=== PATIENT | male | born 1955 | race Caucasian/White ===

== ENCOUNTER 2021-02-11 05:25 | Day surgery (SDC) | payer MEDICARE ==
[2021-02-04 14:55] LABS: BASOPHILS % (AUTO) 0.6 % (0-1); EOSINOPHILS # (AUTO) 0.1 X10'3 (0-0.9); EOSINOPHILS % (AUTO) 1.8 % (0-6); LYMPHOCYTES # (AUTO) 1.3 X10'3 (1.1-4.8); LYMPHOCYTES % (AUTO) 19.9 % (21-51); MEAN CORPUSCULAR HEMOGLOBIN 31.6 PG (27.0-31.0); MEAN CORPUSCULAR HGB CONC 33.5 g/dL (33.0-36.5); MEAN CORPUSCULAR VOLUME 94.5 FL (78-98); MEAN PLATELET VOLUME 11.9 FL (7.4-10.4); MONOCYTES # (AUTO) 0.5 X10'3 (0-0.9); MONOCYTES % (AUTO) 7.7 % (2-12); NEUTROPHILS # (AUTO) 4.6 X10'3 (1.8-7.7); PRE OP HEMATOCRIT 45.6 % (42.0-52.0); PRE OP HEMOGLOBIN 15.3 g/dL (14.0-17.9); RED BLOOD COUNT 4.82 X10'6 (4.70-6.10); RED CELL DISTRIBUTION WIDTH 14.5 % (11.5-14.5)
[2021-02-04 15:08] LABS: ALBUMIN 3.5 G/DL (3.4-5.0); ALBUMIN/GLOBULIN RATIO 0.9 (1.1-1.5); ALKALINE PHOSPHATASE 87 IU/L (46-116); BLOOD UREA NITROGEN 10 MG/DL (7-18); BUN/CREATININE RATIO 9.8 (5.4-32.0); CALCIUM 8.4 MG/DL (8.5-10.1); CHLORIDE 105 MMOL/L (99-107); CREATININE 1.02 MG/DL (0.60-1.10); PRE OP ALT 51 U/L (30-65); PRE OP ANION GAP 10 (8-16); PRE OP AST 49 U/L (10-37); PRE OP BILIRUB, TOTAL 0.6 MG/DL (0.0-1.0); PRE OP GLUCOSE 113 MG/DL (70-104); PRE OP POTASSIUM 4.4 MMOL/L (3.4-5.1); PRE OP SODIUM 140 MMOL/L (135-145); TOTAL CARBON DIOXIDE 25.1 MMOL/L (24-32); TOTAL PROTEIN 7.3 G/DL (6.4-8.2); eGFR 73 ML/MIN
[2021-02-04 15:12] LABS: LARGE PLATELETS FEW; PLATELET ESTIMATE DECREASED
[2021-02-05 10:12] LABS: PRE OP PLATELET COUNT 28 X10'3 (140-440)
[2021-02-11] VITALS (8 sets, daily range): BP systolic 124–135; BP diastolic 65–80
[~2021-02-11] VITALS: Ht 177.8 cm; Wt 127.2 kg
[~2021-02-11 05:25] MED LIST: ADV50250 INH; ALBU8.5H17 INH; ESCI20TA39 PO; METF-950 PO; OLME-11 PO; ringers solution, lacted 1,000 ML IV SCH
[2021-02-11] MEDS ORDERED: ceFAZolin 1GM/D5W- ADD-VANTAGE 50 ML IV ONE (05:30)
[2021-02-11] MEDS ORDERED: ceFAZolin inj. 3,000 MG in normal saline 100ml IV soln 100 ML IV ONE (05:30)
[2021-02-11] MEDS ORDERED: albuterol 2.5 MG/3 ML nebule NEB ONE (05:30)
[2021-02-11] MEDS ORDERED: cefazolin/dext.iso 2gm/100ml 100 ML IV ONE (05:30)
[2021-02-11] MEDS ORDERED: famotidine 20mg tablet PO ONE (05:30)
[2021-02-11] MEDS ORDERED: albuterol 2.5 MG/3 ML nebule NEB PRN (05:30)
[2021-02-11] MEDS ORDERED: BUPIVAcaine/PF 2.5mg/ml (0.25%) 10ml vial ONE ×2 (07:13→08:42)
[2021-02-11] MEDS ORDERED: ringers solution, lacted 1,000 ML IV SCH (07:40)
[2021-02-11] MEDS ORDERED: hydrALAZINE 20mg/ml inj. IV PRN (07:40)
[2021-02-11] MEDS ORDERED: morphine 4 MG/ML inj SYRINge IV PRN (07:40)
[2021-02-11] MEDS ORDERED: ondansetron/PF 4mg/2ml inj IV PRN (07:40)
[2021-02-11] MEDS ORDERED: labetalol 20mg/4ml (5mg/ml) syringe IV PRN (07:40)
[2021-02-11] MEDS ORDERED: acetaminophen 1,000mg/100ml IV 100 ML IV PRN (07:40)
[2021-02-11] MEDS ORDERED: meperidine/PF 25mg/ml syringe IV PRN (07:40)
[2021-02-11] MEDS ORDERED: HYDROmorphone/PF 0.2 MG/ML SYRINGE IV PRN ×2 (07:40)
[2021-02-11] MEDS ORDERED: proCHLORperazine 10 MG/2 ml inj IV PRN (07:40)
[2021-02-11] MEDS ORDERED: morphine 2 MG/ML inj. syringe IV PRN (07:40)
[2021-02-11] MEDS ORDERED: fentaNYL/PF 50MCG/1 ML 2ML syringe ONE (07:47)
[2021-02-11] MEDS ORDERED: MIDAZolam 1 MG/ML 5ML VIAL ONE (07:50)
[2021-02-11] MEDS ORDERED: propofol inj 20 ML IV ONE ×2 (08:00)
[2021-02-11] MEDS ORDERED: LIDOcaine 2% (20mg/ml) 5ml vial ONE (08:00)
[2021-02-11 08:12] LABS: PRE OP INR 1.1 INR
--- NOTE | 2021-02-11 08:39 | NUR ---
Received from OR via [facility], accompanied by Anesthesiologist DR MARIE and report given by Anesthesiologist. PT AWAKE, DENIES PAIN. LEFT HAND W/THUMB AND FINGERS COVERED W/COLETTE WRAP FROM END OF THUMB/FINGERS TO BELOW ELBOW. THUMB/FINGERS PWD, PULMONOLOGIST 1-[address] AND COVERED W/GAUZE AND COLETTE WRAP. Addendum: 02/11/21 at 0901 by Hilda Alvarado RN Amended: Links added.
--- NOTE | 2021-02-11 09:29 | NUR ---
PT UP AND ABLE TO AMBULATE SAFELY, D/C INSTRUCTIONS ALONG W/PRESCRIPTION GIVEN AND GONE OVER W/PT WHO VERBALIZED UNDERSTANDING. PT D/CD TO HOME VIA W/C TO PRIVATE VEHICLE W/O INCIDENT. Addendum: 02/11/21 at 0953 by Hilda Alvarado RN Amended: Links added.
== END 2021-02-11 09:29 | disposition home or self-care (01) ==
LOC: PAS 05:25
PROVIDERS: ATTEND Orthopaedic Surgery Hand Surgery
DX: M18.12 Unilateral primary osteoarthritis of first carpometacarpal joint, left hand (principal); E11.9 Type 2 diabetes mellitus without complications; J45.909 Unspecified asthma, uncomplicated; I10 Essential (primary) hypertension; F41.9 Anxiety disorder, unspecified; Z98.890 Other specified postprocedural states; Z72.89 Other problems related to lifestyle; Z20.822 Contact with and (suspected) exposure to COVID-19; Z79.01 Long term (current) use of anticoagulants; Z79.899 Other long term (current) drug therapy; Z96.651 Presence of right artificial knee joint; Z98.84 Bariatric surgery status; Z87.442 Personal history of urinary calculi
CPT/HCPCS: 25310; 25447; 36415; 80053; 82948; 85025; 85610; 85730; 93005; J2001; J2250; J2704; J3010; J3490; J7120; U0003; U0005; Z7506; Z7512; 85008; A4215; A4618; A7000; J0690

== ENCOUNTER 2024-05-24 08:09 | Inpatient (IN) | payer MEDICARE ==
[2024-05-24] VITALS (20 sets, daily range): BP systolic 106–158; BP diastolic 39–67; PULSE 53–83; RESP 13–20; TEMP 98.7; O2SAT 82–100
[~2024-05-24] VITALS: Ht 182.9 cm; Wt 128.2 kg
[~2024-05-24 08:09] MED LIST changes: +METF-1203 PO; -METF-950 PO; -OLME-11 PO; +OLME-12 PO; -ringers solution, lacted 1,000 ML IV SCH
[2024-05-24 08:29] LABS: BILIRUBIN,URINE NEGATIVE (Neg); CLARITY,URINE CLEAR (Clear); COLOR,URINE YELLOW (Yellow); GLUCOSE, URINE NEGATIVE (Neg); KETONES,URINE TRACE mg/dl (Neg); LEUKOCYTE ESTERASE ,URINE NEGATIVE (Neg); NITRITES, URINE NEGATIVE (Neg); OCCULT BLOOD,URINE NEGATIVE (Neg); PH,URINE 6.5 (4.8-8.0); PROTEIN,URINE NEGATIVE (Neg); UROBILINOGEN,URINE 0.2 E.U/dL (0.2-1.0)
[2024-05-24 08:37] LABS: UA COLLECTION TYPE CLN CATCH MIDSTREAM
[2024-05-24 10:06] LABS: BASOPHILS % (AUTO) 0.2 % (0-1); EOSINOPHILS # (AUTO) 0.1 X10'3 (0-0.9); EOSINOPHILS % (AUTO) 0.9 % (0-6); HEMATOCRIT 43.1 % (42.0-52.0); HEMOGLOBIN 14.2 g/dl (14.0-17.9); LYMPHOCYTES # (AUTO) 1.3 X10'3 (1.1-4.8); LYMPHOCYTES % (AUTO) 9.1 % (21-51); MEAN CORPUSCULAR HEMOGLOBIN 26.9 PG (27.0-31.0); MEAN CORPUSCULAR HGB CONC 32.9 g/dL (33.0-36.5); MEAN CORPUSCULAR VOLUME 81.8 FL (78-98); MONOCYTES # (AUTO) 0.6 X10'3 (0-0.9); MONOCYTES % (AUTO) 4.5 % (2-12); NEUTROPHILS # (AUTO) 11.9 X10'3 (1.8-7.7); NEUTROPHILS % (AUTO) 85.3 % (42-75); PLATELET COUNT 92 X10'3 (140-440); RED BLOOD COUNT 5.26 X10'6 (4.70-6.10); RED CELL DISTRIBUTION WIDTH 15.4 % (11.5-14.5)
[2024-05-24 10:17] LABS: ALANINE AMINOTRANSFERASE 20 U/L (12-78); ALBUMIN 3.9 G/DL (3.4-5.0); ALKALINE PHOSPHATASE 118 IU/L (46-116); ANION GAP 13 (8-16); ASPARTATE AMINO TRANSFERASE 18 U/L (10-37); BILIRUBIN,TOTAL 0.8 MG/DL (0.1-1.0); BLOOD UREA NITROGEN 9 MG/DL (7-18); BUN/CREATININE RATIO 9.1 (10.0-20.0); CALCIUM 9.2 MG/DL (8.5-10.1); CHLORIDE 105 MMOL/L (99-107); CREATININE 0.99 MG/DL (0.60-1.10); GLUCOSE 117 MG/DL (70-104); LIPASE 26 U/L (16-77); POTASSIUM 3.9 MMOL/L (3.5-5.1); SODIUM 141 MMOL/L (135-145); TOTAL CARBON DIOXIDE 22.6 MMOL/L (24-32); TOTAL PROTEIN 7.8 G/DL (6.4-8.2); eCRCL 75 ML/MIN; eGFR 75 ML/MIN
[2024-05-24] MEDS: ketorolac trometh 15mg/ml vial 15 MG/ML ML IV ONE (10:39)
[2024-05-24] MEDS: INDOCYANINE GREEN 25 MG/10 ML VIAL IV STA (14:20)
[2024-05-24] MEDS: morphine 4 MG/ML inj SYRINge IV ONE (14:25)
[2024-05-24] MEDS ORDERED: morphine 2 MG/ML inj. syringe IV PRN ×3 (14:35→15:50)
[2024-05-24] MEDS ORDERED: labetalol 20mg/4ml (5mg/ml) syringe IV PRN (14:35)
[2024-05-24] MEDS ORDERED: enalaprilat dihydrate 2.5mg/2ml vial IV PRN (14:35)
[2024-05-24] MEDS ORDERED: meperidine/PF 25mg/ml syringe IV PRN ×3 (14:35)
[2024-05-24] MEDS ORDERED: ondansetron/PF 4mg/2ml inj IV PRN ×2 (14:35→15:50)
[2024-05-24] MEDS ORDERED: proCHLORperazine 10 MG/2 ml inj IV PRN (14:35)
[2024-05-24] MEDS ORDERED: ringers solution, lacted 1,000 ML IV SCH (14:35)
[2024-05-24] MEDS ORDERED: BUPIVAcaine 2.5mg/ml inj 50ml vial (contains preservative) ONE (14:40)
[2024-05-24] MEDS ORDERED: LIDOcaine 1% (10mg/ml)w/preservative inj. 20ml MDV ONE (14:40)
[2024-05-24] MEDS ORDERED: sevoflurane 250ml liquid IH ONE (15:12)
[2024-05-24] MEDS ORDERED: midazolam 1 mg/ML 2ml injection ONE (15:22)
[2024-05-24] MEDS ORDERED: fentaNYL/PF 50MCG/1 ML 2ML syringe ONE (15:22)
[2024-05-24] MEDS ORDERED: meperidine/PF 25mg/ml syringe ONE (15:24)
[2024-05-24] MEDS ORDERED: propofol inj 20 ML IV ONE (15:25)
[2024-05-24] MEDS ORDERED: rocuronium 10mg/ml inj IV ONE (15:25)
[2024-05-24] MEDS ORDERED: LIDOcaine 1%/PF 5ML 10 MG/ML VIAL ONE (15:25)
[2024-05-24] MEDS ORDERED: ceFAZolin 1000mg inj ONE ×3 (15:43)
[2024-05-24] MEDS ORDERED: HYDROcodone/acetaminophen 5mg/325mg tablet PO PRN (15:50)
[2024-05-24] MEDS ORDERED: potassium Cl 40MEQ/1/2NS 520ml 520 ML IV PRN (15:50)
[2024-05-24] MEDS ORDERED: magnesium Cl slow-release 64mg tablet PO PRN (15:50)
[2024-05-24] MEDS ORDERED: potassium Cl 20 mEq SR tablet PO PRN ×2 (15:50)
[2024-05-24] MEDS ORDERED: acetaminophen 325mg tablet PO PRN ×2 (15:50)
[2024-05-24] MEDS ORDERED: magnesium sulf-water 2g/50mL 50 ML IV PRN (15:50)
[2024-05-24] MEDS ORDERED: magnesium sulf-water 4G/100mL 100 ML IV PRN (15:50)
[2024-05-24] MEDS ORDERED: acetaminophen 1,000mg/100ml IV 100 ML IV ONE (16:27)
[2024-05-24] MEDS: morphine 4 MG/ML inj SYRINge IV PRN (17:01)
[2024-05-24] MEDS: piperacillin/tazo 3.375gm/50ml 50 ML IV SCH (17:13)
[2024-05-24] MEDS ORDERED: glucagon, human recombinant 1mg kit SUBCUT PRN (19:35)
[2024-05-24] MEDS ORDERED: DEXTROSE 15 GM of carb/4 tabs (each vial/BOTTLE has 4 tablets) PO PRN ×2 (19:35)
[2024-05-24] MEDS ORDERED: dextrose 50%-water 50ml dispensing syringe IV PRN ×2 (19:35)
[2024-05-24] MEDS ORDERED: MODA200T48 PO (19:42)
[2024-05-24] MEDS ORDERED: heparin, porcine 5000 units/ml vial SQ SCH (20:00)
[2024-05-24] MEDS: HYDROcodone/acetaminophen 10/325mg tab PO PRN (20:54)
[2024-05-24] MEDS ORDERED: temazepam 15mg capsule PO PRN (21:00)
[2024-05-24] MEDS: normal saline 1000ml 1,000 ML IV SCH (21:03)
[2024-05-24] MEDS: INSULIN LISPRO 100 UNIT/ML INSULN.PEN MULTI-DOSE SQ SCH (21:17)
[2024-05-25 05:00] VITALS: O2SAT 93; O2SAT 95
[2024-05-25 05:18] LABS: BASOPHILS % (AUTO) 0.1 % (0-1); EOSINOPHILS % (AUTO) 0 % (0-6); HEMATOCRIT 36.6 % (42.0-52.0); LYMPHOCYTES # (AUTO) 0.8 X10'3 (1.1-4.8); LYMPHOCYTES % (AUTO) 4.7 % (21-51); MEAN CORPUSCULAR HEMOGLOBIN 26.6 PG (27.0-31.0); MEAN CORPUSCULAR HGB CONC 32.7 g/dL (33.0-36.5); MEAN CORPUSCULAR VOLUME 81.3 FL (78-98); MEAN PLATELET VOLUME 11.7 FL (7.4-10.4); MONOCYTES # (AUTO) 0.9 X10'3 (0-0.9); NEUTROPHILS # (AUTO) 15.5 X10'3 (1.8-7.7); NEUTROPHILS % (AUTO) 90.2 % (42-75); PLATELET COUNT 80 X10'3 (140-440); RED BLOOD COUNT 4.51 X10'6 (4.70-6.10); RED CELL DISTRIBUTION WIDTH 15.1 % (11.5-14.5); WHITE BLOOD COUNT 17.2 X10'3 (4.5-11.0)
[2024-05-25 05:42] LABS: ALANINE AMINOTRANSFERASE 21 U/L (12-78); ALBUMIN 2.9 G/DL (3.4-5.0); ALBUMIN/GLOBULIN RATIO 0.9 (1.1-1.5); ALKALINE PHOSPHATASE 94 IU/L (46-116); ANION GAP 6 (8-16); ASPARTATE AMINO TRANSFERASE 15 U/L (10-37); BILIRUBIN,TOTAL 0.8 MG/DL (0.1-1.0); BLOOD UREA NITROGEN 12 MG/DL (7-18); BUN/CREATININE RATIO 11.7 (10.0-20.0); CALCIUM 8.7 MG/DL (8.5-10.1); CHLORIDE 107 MMOL/L (99-107); CREATININE 1.03 MG/DL (0.60-1.10); GLUCOSE 188 MG/DL (70-104); POTASSIUM 4.4 MMOL/L (3.5-5.1); SODIUM 139 MMOL/L (135-145); TOTAL CARBON DIOXIDE 25.6 MMOL/L (24-32); TOTAL PROTEIN 6.2 G/DL (6.4-8.2); eCRCL 72 ML/MIN; eGFR 71 ML/MIN
[2024-05-25 06:00] VITALS: BP 101/48; PULSE 55; RESP 12; TEMP 98.7; O2SAT 95
[2024-05-25 06:56] LABS: LARGE PLATELETS FEW; PLATELET ESTIMATE DECREASED
[2024-05-25 08:00] VITALS: RESP 12; O2SAT 95
[2024-05-25 10:00] VITALS: BP 112/62; PULSE 69; RESP 17; TEMP 98.1; O2SAT 97
[2024-05-25] MEDS ORDERED: ACET-75 PO (11:43)
== END 2024-05-25 12:35 | disposition home or self-care (01) | DRG 418 ==
LOC: ER 08:09 → PAS IN 15:53 → SUR 3N 18:30
PROVIDERS: ADMIT Internal Medicine; ATTEND Family Medicine
PROC: BF131ZZ Fluoroscopy of Gallbladder and Bile Ducts using Low Osmolar Contrast (ICD-10-PCS; 2024-05-24)
PROC: 8E0W4CZ Robotic Assisted Procedure of Trunk Region, Percutaneous Endoscopic Approach (ICD-10-PCS; 2024-05-24)
PROC: 0FT44ZZ Resection of Gallbladder, Percutaneous Endoscopic Approach (ICD-10-PCS; principal; 2024-05-24 15:12)
DX: K80.00 Calculus of gallbladder with acute cholecystitis without obstruction (principal); K82.1 Hydrops of gallbladder; J45.909 Unspecified asthma, uncomplicated; E11.9 Type 2 diabetes mellitus without complications; K82.A1 Gangrene of gallbladder in cholecystitis; G89.29 Other chronic pain; M54.50 Low back pain, unspecified; G47.33 Obstructive sleep apnea (adult) (pediatric); I10 Essential (primary) hypertension; Z79.899 Other long term (current) drug therapy; Z79.84 Long term (current) use of oral hypoglycemic drugs
CPT/HCPCS: 36415; 74176; 76700; 80053; 81003; 82948; 83036; 83690; 84145; 85008; 85025; 87081; 99285; A4215; A4618; A7000; G0378; J0131; J0690; J1100; J1815; J1885; J2175; J2250; J2270; J2405; J2543; J2704; J3010; J3490; J7030; J7120